=== PATIENT | female | born 1985 | race American Indian/Alaskan Native ===

== ENCOUNTER 2017-04-16 23:44 | Emergency (ER) | payer BC ==
[2017-04-17 01:02] LABS: Basophils % (Auto) 0.4 % (0.0-1.8); Eosinophils % (Auto) 1.3 % (0.0-4.3); Hematocrit 36.8 % (30.3-42.9); Mean Corpuscular HGB Conc 33 % (30-34); Mean Corpuscular Hemoglobin 29 pg (28-32); Mean Corpuscular Volume 87 fl (79-97); Platelet Count 166 K/mm3 (140-440); Red Blood Count 4.22 M/mm3 (3.65-5.03); Red Cell Distribution Width 13.8 % (13.2-15.2); White Blood Count 8.7 K/mm3 (4.5-11.0)
[2017-04-17 01:25] LABS: Alanine Aminotransferase 8 units/L (7-56); Albumin 4.4 g/dL (3.9-5); Albumin/Globulin Ratio 1.4 %; Alkaline Phosphatase 37 units/L (35-129); Anion Gap 15 mmol/L; Blood Urea Nitrogen 6 mg/dL (7-17); Calcium 9.3 mg/dL (8.4-10.2); Carbon Dioxide 25 mmol/L (22-30); Chloride 101.5 mmol/L (98-107); Glucose 94 mg/dL (65-100); Lipase 20 units/L (13-60); Potassium 3.9 mmol/L (3.6-5.0); Sodium 138 mmol/L (137-145); Total Protein 7.5 g/dL (6.3-8.2)
[2017-04-17 02:31] LABS: Bacteria,Urine 4+ /HPF (Negative); Bilirubin,Urine NEG (Negative); Blood,Urine SM (Negative); Ketones,Urine NEG (Negative); Leukocyte Esterase,Urine SM (Negative); Mucus,Urine 2+ /HPF; Nitrite,Urine POS (Negative); Protein,Urine <15 mg/dL mg/dL (Negative); Urobilinogen,Urine < 2.0 mg/dL (<2.0)
--- NOTE | 2017-04-17 03:02 | Emergency Department Report ---
HPI - General Chief Complaint: Abdominal Pain Time Seen by Provider: 04/17/17 02:56 - HPI HPI: 31-year-old Slovak Slovak female coming in with pelvic pain starting on this morning patient had a history recent amenorrhea. She states that her pain is accompanied by nausea, vomiting and urinary symptoms but no diarrhea. Patient has not taking any medication at home for her symptoms. She denies any exacerbating factors. She denies any alleviating factors. She denies any recent travel, or unusual foods. She denies any sick contacts. MD Complaint: abdominal pain -: Gradual Location: Pelvic Radiation: none Migration to: no migration Severity scale (0 -10): 10 Quality: sharp Improves With: nothing Associated Symptoms: nausea, vomiting, chills ED Past Medical Hx - Past Medical History Previous Medical History?: No - Surgical History Past Surgical History?: No - Social History Smoking Status: Current Every Day Smoker Substance Use Type: Alcohol - Medications Home Medications: Home Medications Medication Instructions Recorded Confirmed Last Taken Type Nitrofurantoin [place]/M-Cryst 100 mg PO Q12HR #14 capsule 04/17/17 Unknown Rx [Macrobid CAP] ED Review of Systems ROS: Stated complaint: ABOMINAL PAIN Other details as noted in HPI Comment: All other systems reviewed and negative Endocrine: no symptoms reported Gastrointestinal: as per HPI Genitourinary: as per HPI Musculoskeletal: denies: back pain, joint swelling, arthralgia Skin: denies: rash, lesions Physical Exam - Physical Exam Vital Signs: Vital Signs 04/17/17 00:18 Temperature 98.9 F Pulse Rate 83 Respiratory 17 Rate Blood Pressure 138/75 O2 Sat by Pulse 99 Oximetry Physical Exam: Physical Exam: - General Limitations: No Limitations General appearance: alert, in no apparent distress. - Head Head exam: Present: atraumatic, normocephalic - Eye Eye exam: Present: normal appearance - ENT ENT exam: Present: mucous membranes moist - Neck Neck exam: Present: normal inspection - Respiratory Respiratory exam: Present: normal lung sounds bilaterally. Absent: respiratory distress - Cardiovascular Cardiovascular Exam: Present: normal rhythm, normal rate. Absent: systolic murmur, diastolic murmur, rubs, gallop - GI/Abdominal GI/Abdominal exam: Present: soft, normal bowel sounds - Extremities Exam Extremities exam: Present: normal inspection - Back Exam Back exam: Present: normal inspection - Neurological Exam Neurological exam: Present: alert, oriented X3 - Psychiatric Psychiatric exam: normal affect and mood - Skin Skin exam: Present: warm, dry, intact, normal color. Absent: rash ED Course Vital Signs 04/17/17 00:18 Temperature 98.9 F Pulse Rate 83 Respiratory 17 Rate Blood Pressure 138/75 O2 Sat by Pulse 99 Oximetry ED Medical Decision Making - Lab Data Result diagrams: 04/17/17 00:50 04/17/17 00:50 Critical care attestation.: If time is entered above; I have spent that time in minutes in the direct care of this critically ill patient, excluding procedure time. ED Disposition Clinical Impression: Threatened , UTI (urinary tract infection) Disposition: - TO HOME OR SELFCARE Is pt being admited?: No Does the pt Need Aspirin: No Condition: Stable Instructions: Abdominal Pain (ED) Prescriptions: Nitrofurantoin [place]/M-Cryst [Macrobid CAP] 100 mg PO Q12HR #14 capsule Referrals: PRIMARY CAREMD [Primary Care Provider] - 3-5 Days ILEANA ANGEL MD [Staff Physician] - 3-5 Days
--- NOTE | 2017-04-17 04:17 | Ultrasound Report ---
FINAL REPORT PROCEDURE: Obstetrical ultrasound, transabdominal and transvaginal TECHNIQUE: Real-time transabdominal and transvaginal sonography of the uterus, placenta, amniotic fluid, adnexa, and fetus was performed with image documentation. Measurements were obtained to determine age/size. M-mode Doppler was used to document heartbeat. CPT 46896 and 85659 HISTORY: pelvic pain COMPARISON: No prior studies are available for comparison. FINDINGS: There is a gestational sac identified within the uterus. The gestational sac size of 21 millimeters corresponds to an approximate gestational age of 7 weeks. No definitive pole is identified on this study. There is some debris in 1 portion of the gestational sac. This may represent a yolk sac. The right ovary size is normal. There is a complex cystic region on the right ovary this measures 19 millimeters. The left ovary size and echogenicity is normal. The findings are most consistent with a failed intrauterine . With the gestational sac size of 21 millimeters a pole should be identified on the evaluation. IMPRESSION: There is a gestational sac within the uterus. Approximate gestational age of 7 weeks. No pole is identified on this study. The findings are most consistent with failed intrauterine . There is a complex cyst on the right ovary as discussed.
--- NOTE | 2017-04-17 04:18 | Ultrasound Report ---
FINAL REPORT PROCEDURE: Obstetrical ultrasound, transabdominal and transvaginal TECHNIQUE: Real-time transabdominal and transvaginal sonography of the uterus, placenta, amniotic fluid, adnexa, and fetus was performed with image documentation. Measurements were obtained to determine age/size. M-mode Doppler was used to document heartbeat. CPT 25926 and 25984 HISTORY: pelvic pain COMPARISON: No prior studies are available for comparison. FINDINGS: There is a gestational sac identified within the uterus. The gestational sac size of 21 millimeters corresponds to an approximate gestational age of 7 weeks. No definitive pole is identified on this study. There is some debris in 1 portion of the gestational sac. This may represent a yolk sac. The right ovary size is normal. There is a complex cystic region on the right ovary this measures 19 millimeters. The left ovary size and echogenicity is normal. The findings are most consistent with a failed intrauterine . With the gestational sac size of 21 millimeters a pole should be identified on the evaluation. IMPRESSION: There is a gestational sac within the uterus. Approximate gestational age of 7 weeks. No pole is identified on this study. The findings are most consistent with failed intrauterine . There is a complex cyst on the right ovary as discussed.
[2017-04-17 05:37] VITALS: BP 132/72
== END 2017-04-17 05:38 | disposition home or self-care (01) ==
LOC: ED 23:44
DX: O20.0 Threatened abortion (principal); O23.41 Unspecified infection of urinary tract in pregnancy, first trimester; Z3A.01 Less than 8 weeks gestation of pregnancy; F17.200 Nicotine dependence, unspecified, uncomplicated
CPT/HCPCS: 36415; 76801; 76817; 80053; 81001; 81025; 83690; 84702; 85025

== ENCOUNTER 2017-11-21 10:57 | Emergency (ER) | payer BC ==
--- NOTE | 2017-11-21 16:57 | Emergency Department Report ---
ED Chest Pain HPI - General Chief Complaint: Chest Pain Stated Complaint: CP Time Seen by Provider: 11/21/17 14:39 Source: patient Mode of arrival: Ambulatory Limitations: No Limitations - History of Present Illness Initial Comments: Patient is a 32-year-old female who is presenting with chest pain since yesterday. Patient states that when she takes a deep breath it makes her cough and she has some pleuritic chest pain. Patient denies any shortness of breath. Cough is nonproductive. Patient states the pain is anterior chest. Patient 4 months at this time. Patient denies any fevers chills nausea vomiting. Patient states pain is sharp in nature and 6 out of 10 in severity. - Related Data Previous Rx's Medication Instructions Recorded Last Taken Type Nitrofurantoin [place]/M-Cryst 100 mg PO Q12HR #14 capsule 04/17/17 Unknown Rx [Macrobid CAP] ALBUTEROL Inhaler [ProAir HFA 2 puff IH QID PRN #1 inhalation 11/21/17 Unknown Rx Inhaler] Allergies Allergy/AdvReac Type Severity Reaction Status Date / Time No Known Allergies Allergy Verified 11/21/17 11:11 Heart Score - HEART Score History: Slightly suspicious EKG: Normal Age: < 45 Risk factors: No known risk factors Troponin: < normal limit HEART Score: 0 ED Review of Systems ROS: Stated complaint: CP Other details as noted in HPI Comment: All other systems reviewed and negative ED Past Medical Hx - Past Medical History Previous Medical History?: No - Surgical History Past Surgical History?: No - Social History Smoking Status: Never Smoker Substance Use Type: None - Medications Home Medications: Home Medications Medication Instructions Recorded Confirmed Last Taken Type Nitrofurantoin [place]/M-Cryst 100 mg PO Q12HR #14 capsule 04/17/17 Unknown Rx [Macrobid CAP] ALBUTEROL Inhaler [ProAir HFA 2 puff IH QID PRN #1 inhalation 11/21/17 Unknown Rx Inhaler] ED Physical Exam - General Limitations: No Limitations General appearance: alert, in no apparent distress - Head Head exam: Present: atraumatic, normocephalic - Eye Eye exam: Present: normal appearance - ENT ENT exam: Present: mucous membranes moist - Neck Neck exam: Present: normal inspection - Respiratory Respiratory exam: Present: normal lung sounds bilaterally. Absent: respiratory distress, wheezes, rales, rhonchi - Cardiovascular Cardiovascular Exam: Present: regular rate, normal rhythm. Absent: systolic murmur, diastolic murmur, rubs, gallop - GI/Abdominal GI/Abdominal exam: Present: soft, normal bowel sounds. Absent: distended, tenderness, guarding, rebound - Extremities Exam Extremities exam: Present: normal inspection - Back Exam Back exam: Present: normal inspection - Neurological Exam Neurological exam: Present: alert, oriented X3 - Psychiatric Psychiatric exam: Present: normal affect, normal mood - Skin Skin exam: Present: warm, dry, intact, normal color. Absent: rash ED Course Vital Signs 11/21/17 11:11 Temperature 98.7 F Pulse Rate 85 Respiratory 16 Rate Blood Pressure 125/82 O2 Sat by Pulse 100 Oximetry ED Medical Decision Making - Lab Data Lab Results 11/21/17 Range/Units 15:13 D-Dimer 223.35 (0-234) ng/mlDDU - EKG Data -: EKG Interpreted by Ar - EKG Data Interpretation: other (EKG shows a sinus rhythm at 82 normal axis normal and was no ST segment elevation or depression. Interpretation is 1110) - Medical Decision Making Patient's d-dimer is negative patient ruled out for PE at this time. Patient will be discharged home and take Tylenol for pain. Critical care attestation.: If time is entered above; I have spent that time in minutes in the direct care of this critically ill patient, excluding procedure time. ED Disposition Clinical Impression: Pleurisy Disposition: DC-01 TO HOME OR SELFCARE Is pt being admited?: No Does the pt Need Aspirin: No Condition: Stable Instructions: Pleurisy (ED) Prescriptions: ALBUTEROL Inhaler [ProAir HFA Inhaler] 2 puff IH QID PRN #1 inhalation PRN Reason: Shortness Of Breath Referrals: PRIMARY CARE,MD [Primary Care Provider] - 3-5 Days
[2017-11-21 17:53] VITALS: BP 138/69
== END 2017-11-21 17:52 | disposition home or self-care (01) ==
LOC: ED 10:57
DX: R09.1 Pleurisy (principal)
CPT/HCPCS: 36415; 85379; 93005; 93010; 99282

== ENCOUNTER 2019-08-10 04:58 | Emergency (ER) | payer BC ==
[2019-08-10] MEDS ORDERED: ACETAMINOPHEN 325 MG TAB PO ONE (06:04)
[2019-08-10] MEDS ORDERED: ACETAMINOPHEN 325 MG TAB ONE (06:07)
[2019-08-10 06:25] LABS: Basophils % (Auto) 0.3 % (0.0-1.8); Eosinophils # (Auto) 0.1 K/mm3 (0.0-0.4); Eosinophils % (Auto) 1.3 % (0.0-4.3); Hematocrit 35.6 % (30.3-42.9); Hemoglobin 11.6 gm/dl (10.1-14.3); Lymphocytes # (Auto) 2.2 K/mm3 (1.2-5.4); Lymphocytes % (Auto) 23.1 % (13.4-35.0); Mean Corpuscular HGB Conc 33 % (30-34); Mean Corpuscular Volume 88 fl (79-97); Monocytes # (Auto) 0.6 K/mm3 (0.0-0.8); Monocytes % (Auto) 6.1 % (0.0-7.3); Platelet Count 178 K/mm3 (140-440); Red Blood Count 4.07 M/mm3 (3.65-5.03); Red Cell Distribution Width 13.3 % (13.2-15.2)
[2019-08-10 07:17] LABS: Bilirubin,Urine NEG (Negative); Blood,Urine SM (Negative); Color,Urine Yellow (Yellow); Mucus,Urine 3+ /HPF
--- NOTE | 2019-08-10 08:32 | Ultrasound Report ---
Obstetrical ultrasound. 08/10/2019. HISTORY: Abdominal pain. FINDINGS: A viable intrauterine gestation is in the breech presentation. The placenta is located on t he right laterally. Amniotic fluid is subjectively normal. Cervical length is 5 cm. Renal margins are normal and 144 bpm. Estimated age is 18 weeks 3 days. Estimated weight is 243 g. survey demonstrates no gross anomaly. IMPRESSION: Viable intrauterine dated 18 weeks 3 days. No anomaly identified. Signer Name: Jose Luis Chambers MD Signed: 08/10/2019 8:27 AM Workstation Name: [id number]
--- NOTE | 2019-08-10 09:24 | Emergency Department Report ---
HPI - General Chief Complaint: Abdominal Pain Time Seen by Provider: 08/10/19 08:45 - HPI HPI: 34-year-old female presents to the emergency department with 2 complaints. First, the patient complains of some lower abdominal and/or pelvic sharp intermittent pains for the past few days. The patient is and thinks she is about 14 weeks along. She denies any vaginal bleeding, dysuria, fever, vomiting. With this she is and follows at [facility] for [facility]. Her second complaint is some right knee pain, worse towards the medial portion of the knee, that started about 3 days ago. She denies any fall, trauma or obvious inciting injury/event. She is able to walk and bear weight but has some pain with doing so. She has not taken anything for her symptoms prior to arrival today. Otherwise she denies any past medical history. No swelling of the legs. No skin color change or rash. ED Past Medical Hx - Past Medical History Previous Medical History?: No - Surgical History Past Surgical History?: No - Social History Smoking Status: Never Smoker Substance Use Type: None - Medications Home Medications: Home Medications Medication Instructions Recorded Confirmed Last Taken Type Butalb/Acetamin/Caff 50-325-40 1 tab PO Q6HR PRN #20 tab 05/28/18 Unknown Rx [Fioricet] Ibuprofen [Motrin] 800 mg PO Q8HR PRN 05/28/18 05/28/18 Unknown History labetaloL [Labetalol 100mg TAB] 100 mg PO BID #20 tablet 05/28/18 Unknown Rx ED Review of Systems ROS: Stated complaint: RIGHT KNEE PAIN, ABD PAIN Other details as noted in HPI Comment: All other systems reviewed and negative Constitutional: denies: chills, fever Respiratory: denies: shortness of breath Cardiovascular: denies: chest pain Gastrointestinal: abdominal pain. denies: vomiting Genitourinary: denies: dysuria, abnormal menses Musculoskeletal: arthralgia. denies: joint swelling Skin: denies: rash, lesions Neurological: denies: numbness, paresthesias Physical Exam - Physical Exam Vital Signs: Vital Signs 08/10/19 05:14 Temperature 98.5 F Pulse Rate 96 H Respiratory 18 Rate Blood Pressure 126/78 O2 Sat by Pulse 98 Oximetry Physical Exam: GENERAL: The patient is well-developed well-nourished. HEENT: Normocephalic. Atraumatic. Patient has moist mucous membranes. EYES: Extraocular motions are intact. NECK: Supple. Trachea is midline CHEST/LUNGS: Clear to auscultation. There is no respiratory distress noted. HEART/CARDIOVASCULAR: Regular. There is no tachycardia. ABDOMEN: Abdomen is soft, nontender. Patient has normal bowel sounds. There is no abdominal distention. SKIN: Skin is warm and dry. NEURO: The patient is awake, alert, and oriented. The patient is cooperative. Normal speech. MUSCULOSKELETAL: There is some mild tenderness to the medial portion of the right knee but no obvious deformity. Negative anterior and posterior drawer test. No laxity to valgus or varus stress. ED Course Vital Signs 08/10/19 05:14 Temperature 98.5 F Pulse Rate 96 H Respiratory 18 Rate Blood Pressure 126/78 O2 Sat by Pulse 98 Oximetry ED Medical Decision Making - Lab Data Result diagrams: 08/10/19 06:06 - Radiology Data Radiology results: report reviewed ultrasound shows a live intrauterine at 18 weeks and 3 days. - Medical Decision Making This patient presents the emergency department with some lower abdominal or pelvic cramping while . The patient thought she was 14 weeks but her ultrasound came back showing a live intrauterine at 18 weeks and 3 days without any other significant abnormalities. There is no vaginal b leeding. The patient also complains of some atraumatic medial right knee pain. There is no joint swelling, erythema or warmth. Negative drawer test and there is no laxity to valgus or varus stress. Given this, and the patient's status, I did not feel that x-ray of the knee was necessary at this time. She is ambulatory. She was given an Sae wrap for some added support. Patient has been discharged appear safe for discharge home at this time. She is given a referral for an orthopedist and instructed to follow-up with her [facility]. She will return to the ER with any worsening of her symptoms or any acute distress. - Differential Diagnosis , threatened miscarriage, spontaneous miscarriage, osteoarthritis, Critical Care Time: No Critical care attestation.: If time is entered above; I have spent that time in minutes in the direct care of this critically ill patient, excluding procedure time. ED Disposition Clinical Impression: Qualifiers: Weeks of gestation: 18 weeks Qualified Code(s): Z3A.18 - 18 weeks gestation of Abdominal pain Qualifiers: Abdominal location: unspecified location Qualified Code(s): R10.9 - Unspecified abdominal pain Right knee pain Qualifiers: Chronicity: unspecified Qualified Code(s): M25.561 - Pain in right knee Disposition: TO HOME OR SELFCARE Is pt being admited?: No Condition: Stable Instructions: (ED), Abdominal Pain (ED), Knee Pain (ED) Additional Instructions: Please follow-up with your [facility] regarding your abdominal pain while . However the ultrasound today showed a live intrauterine at 18 weeks. I am giving you a referral for a local orthopedist, Dr. Mcguire, to follow up regarding your right knee pain. Return to the emergency Department with any worsening of your symptoms or with any acute distress. You can take Tylenol every 4-6 hours, using weight-based dosing on the back of the bottle, as needed for any discomfort. Referrals: ILEANA ANGEL MD [Staff Physician] - 2-3 Days JAYLYN MCGUIRE MD [Staff Physician] - 2-3 Days PRIMARY CARE, [Primary Care Provider] - 2-3 Days Time of Disposition: 09:24
[2019-08-10 09:36] VITALS: BP 122/78
== END 2019-08-10 09:35 | disposition home or self-care (01) ==
LOC: ED 04:58
DX: O26.892 Other specified pregnancy related conditions, second trimester (principal); R10.30 Lower abdominal pain, unspecified; M25.561 Pain in right knee; Z79.899 Other long term (current) drug therapy; Z3A.18 18 weeks gestation of pregnancy
CPT/HCPCS: 36415; 76805; 81001; 84702; 85025; 99284

== ENCOUNTER 2021-02-24 07:09 | Emergency (ER) | payer BC, MEDICAID ==
[2021-02-24] MEDS ORDERED: ONDANSETRON 4 MG/2 ML INJ IV ONE (08:06)
[2021-02-24] MEDS ORDERED: SODIUM CHLORIDE 0.9% 1000 ML 1,000 ML IV ONE (08:06)
[2021-02-24 08:31] LABS: Bacteria,Urine 1+ /HPF (Negative); Bilirubin,Urine NEG (Negative); Blood,Urine MOD (Negative); Color,Urine Yellow (Yellow); Mucus,Urine 3+ /HPF; Protein,Urine <15 mg/dL mg/dL (Negative)
[2021-02-24 08:46] LABS: Hematocrit 32.8 % (30.3-42.9); Hemoglobin 10.9 gm/dl (10.1-14.3); Mean Corpuscular HGB Conc 33 % (30-34); Mean Corpuscular Volume 87 fl (79-97); Platelet Count 150 K/mm3 (140-440); Red Blood Count 3.77 M/mm3 (3.65-5.03); Red Cell Distribution Width 13.7 % (13.2-15.2)
--- NOTE | 2021-02-24 08:48 | Emergency Department Report ---
ED General Adult HPI - General Chief complaint: Headache Stated complaint: 16 WEEKS , MIGRAINE PUI?: No Time Seen by Provider: 02/24/21 07:26 Source: patient Mode of arrival: Ambulatory Limitations: No Limitations - History of Present Illness Initial comments: 35 YO COMES TO ER CO HEADACHE. I ENTERED THE ROOM SHE WAS ARGUING WITH THE FATHER OF THE CHILD ON THE FACE TIME. SHE STATES "HE JUST DOES NOT GET IT." I ASKED HER TO HANG UP THE PHONE. IT SEEMS SHE IS TRYING TO IMPRESS UPON HIM THAT THE NEEDS TO BE SUPPORTIVE OF THE BECAUSE IT CAN OTHER BLACKMON MAKE HER BP GO UP AND COMPROMISE THE CHILD. WHEN SHE HUNG UP THE PHONE SHE ADDED THEY WERE WORKING ON THEIR RELATIONSHIP AND THE "HAPPENED" AND SINCE THEN THEY HAVE HAD PROBLEMS. ONE OF HER OTHER CHILDREN ARE TO THIS MAN PT SAW HER OBGYN LAST WEEK AND HAS APPNT 03/18. SHE IS A PT AT [facility]. HER BP WAS ELEVATED LAST WEEK IN THE OFFICE TO 166/90 BUT SHE STATES THEY WERE NOT CONCERNED THE PT ADDS SHE HAS HAD PREECLAMPSIA WITH HER OTHER PREGNANCYS AND A HX OF MIGRAINES LMP 09/26/20 EDC 07/31/21 HOME MEDS ONLY NO VAG BLEED OR DISCHARGE NO ABD PAIN OR BACK PAIN NO DYSURIA NO CP OR SOB NO PHOTOPHOBIA NO N/V PT DROVE SELF TO ER; SHE HAS NO FOCAL DEFICIT. -: Gradual Location: head Radiation: non-radiation Severity scale (0 -10): 8 Quality: aching Consistency: intermittent Improves with: none Worsens with: none Associated Symptoms: denies other symptoms Treatments Prior to Arrival: none - Related Data Previous Rx's Medication Instructions Recorded Last Taken Type cephALEXin [Keflex] 500 mg PO Q12HR #10 cap 02/24/21 Unknown Rx Allergies Allergy/AdvReac Type Severity Reaction Status Date / Time No Known Allergies Allergy Verified 02/24/21 07:11 ED Review of Systems ROS: Stated complaint: 16 WEEKS , MIGRAINE Other details as noted in HPI Comment: All other systems reviewed and negative ED Past Medical Hx - Past Medical History Previous Medical History?: Yes Hx Hypertension: Yes - Surgical History Past Surgical History?: Yes Additional Surgical History: c section - Family History Family history: no significant - Social History Smoking Status: Never Smoker Substance Use Type: None - Medications Home Medications: Home Medications Medication Instructions Recorded Confirmed Last Taken Type cephALEXin [Keflex] 500 mg PO Q12HR #10 cap 02/24/21 Unknown Rx ED Physical Exam - General Limitations: No Limitations General appearance: alert, in no apparent distress - Head Head exam: Present: atraumatic, normocephalic - Eye Eye exam: Present: normal appearance - ENT ENT exam: Present: mucous membranes moist - Neck Neck exam: Present: normal inspection - Respiratory Respiratory exam: Present: normal lung sounds bilaterally. Absent: respiratory distress - Cardiovascular Cardiovascular Exam: Present: regular rate, normal rhythm. Absent: systolic murmur, diastolic murmur, rubs, gallop - GI/Abdominal GI/Abdominal exam: Present: soft, normal bowel sounds - Extremities Exam Extremities exam: Present: normal inspection - Back Exam Back exam: Present: normal inspection - Neurological Exam Neurological exam: Present: alert, oriented X3 - Psychiatric Psychiatric exam: Present: normal affect, normal mood - Skin Skin exam: Present: warm, dry, intact, normal color. Absent: rash ED Course Vital Signs 02/24/21 02/24/21 07:17 10:46 Temperature 98.6 F Pulse Rate 84 84 Respiratory 20 19 Rate Blood Pressure 122/66 127/71 [Right] O2 Sat by Pulse 95 99 Oximetry ED Medical Decision Making - Lab Data Result diagrams: 02/24/21 08:24 02/24/21 08:24 - Medical Decision Making Vital Signs 02/24/21 07:17 Temperature 98.6 F Pulse Rate 84 Respiratory 20 Rate Blood Pressure 122/66 [Right] O2 Sat by Pulse 95 Oximetry Labs 02/24/21 02/24/21 02/24/21 08:20 08:24 08:24 WBC 6.3 RBC 3.77 Hgb 10.9 Hct 32.8 MCV 87 MCH 29 MCHC 33 RDW 13.7 Plt Count 150 Sodium 135 L Potassium 3.7 Chloride 102.9 Carbon Dioxide 22 Anion Gap 14 BUN 6 L Creatinine 0.4 L Estimated GFR > 60 BUN/Creatinine Ratio 15 Glucose 90 Calcium 8.6 Total Bilirubin 0.20 AST 9 ALT < 5 L Alkaline Phosphatase 31 L Total Protein 6.1 L Albumin 3.5 L Albumin/Globulin Ratio 1.3 HCG, Quant Urine Color Yellow Urine Turbidity Slightly-cloudy Urine pH 6.0 Ur Specific [place] 1.025 Urine Protein <15 mg/dl Urine Glucose (UA) Neg Urine Ketones Neg Urine Blood Mod Urine Nitrite Neg Urine Bilirubin Neg Urine Urobilinogen 2.0 Ur Leukocyte Esterase Tr Urine WBC (Auto) 1.0 Urine RBC (Auto) 7.0 U Epithel Cells (Auto) 8.0 Urine Bacteria (Auto) 1+ Urine Mucus 3+ 02/24/21 08:24 WBC RBC Hgb Hct MCV MCH MCHC RDW Plt Count Sodium Potassium Chloride Carbon Dioxide Anion Gap BUN Creatinine Estimated GFR BUN/Creatinine Ratio Glucose Calcium Total Bilirubin AST ALT Alkaline Phosphatase Total Protein Albumin Albumin/Globulin Ratio HCG, Quant 09628 H Urine Color Urine Turbidity Urine pH Ur Specific [place] Urine Protein Urine Glucose (UA) Urine Ketones Urine Blood Urine Nitrite Urine Bilirubin Urine Urobilinogen Ur Leukocyte Esterase Urine WBC (Auto) Urine RBC (Auto) U Epithel Cells (Auto) Urine Bacteria (Auto) Urine Mucus UA NOTED WILL TREAT GIVEN HER URINE CULTURE PENDING CALL HER IF SHE NEEDS AN ANBX CHANGE LABS NOTED 1LNS/TYLENOL/ROCEPHIN GIVEN IN ER ON DC EXAM SHE REPORTS FEELING BETTER. SHE HAS BEEN IN ROOM, IN THE DARK AND NON CONVERSING ON THE PHONE I HAD ASKED OF HER. DC HOME WITH OBGYN FOLLOW UP. HAS BEEN ADVISED TO MINIMIZE STRESS ASSOCIATED WITH FATHER OF CHILD. PT VERBALIZES UNDERSTANDING OF DC PLAN OF CARE - Differential Diagnosis HEADACHE/; STRESS; HX PRE-ECLAMPSIA Critical care attestation.: If time is entered above; I have spent that time in minutes in the direct care of this critically ill patient, excluding procedure time. ED Disposition Clinical Impression: , UTI (urinary tract infection), Headache Disposition: DC-01 TO HOME OR SELFCARE Is pt being admited?: No Does the pt Need Aspirin: No Condition: Stable Instructions: Urinary Tract Infection, Adult Additional Instructions: FOLLOW UP WITH OBGYN ALLIE TYLENOL FOR PAIN DRINK ALOT OF WATER EAT BALANCED DIET CONTINUE VITAMIN AVOID STRESS OF RELATIONSHIP -- THIS AFFECTS YOUR BP PT UNDERSTANDS WE WILL CALL HER IF WE NEED TO CHANGE HER ANTIBIOTICS BASED ON CULTURE DATA Prescriptions: cephALEXin [Keflex] 500 mg PO Q12HR #10 cap Referrals: JUAN OLSON MD [Primary Care Provider] - 3-5 Days CHANDNI GARCIA MD [Referring] - 3-5 Days PETRA MUÑOZ MD [Staff Physician] - 3-5 Days Time of Disposition: 10:15
[2021-02-24 09:08] LABS: Albumin 3.5 g/dL (3.9-5); Blood Urea Nitrogen 6 mg/dL (7-17); Calcium 8.6 mg/dL (8.4-10.2); Hemolysis Index 2
[2021-02-24] MEDS ORDERED: cefTRIAXone/NS 1 GM/50 ML 1 GM/50 ML BAG IV ONE (09:10)
[2021-02-24 09:51] LABS: Alanine Aminotransferase < 5 units/L (7-56); BUN/Creatinine Ratio 15
[2021-02-24] MEDS ORDERED: ACETAMINOPHEN 500 MG TAB PO ONE (10:07)
[2021-02-24 10:47] VITALS: BP 127/71
== END 2021-02-24 10:47 | disposition home or self-care (01) ==
LOC: ED 07:09
DX: O23.42 Unspecified infection of urinary tract in pregnancy, second trimester (principal); O26.891 Other specified pregnancy related conditions, first trimester; R51.9 Headache, unspecified; I10 Essential (primary) hypertension; Z3A.16 16 weeks gestation of pregnancy; Z98.890 Other specified postprocedural states; Z79.899 Other long term (current) drug therapy
CPT/HCPCS: 36415; 80053; 81001; 84702; 85027; 87086; 96361; 96365; 96375; 99283; J0696; J2405; J7030

== ENCOUNTER 2021-06-13 01:11 | Emergency (ER) | payer BC, MEDICAID ==
[2021-06-13 02:48] VITALS: BP 118/62
--- NOTE | 2021-06-13 02:50 | Emergency Department Report ---
- General Stated Complaint: RUNNY NOSE/COUGH - History of Present Illness Initial Comments: Patient is a 35-year-old -[place] female with no past medical history presents to the ED with complaint of acute onset persistent nasal and sinus congestion, persistent dry cough, frontal sinus pressure and headache for the last 1 week. Patient states that her own school going children have had similar symptoms and now the entire household is infected. Patient states that she is 32 weeks gestation at this time. Patient states that she has been taking [id number] medications with no relief. Patient denies fever, chills, sore throat, nausea and vomiting, abdominal pain, chest pain, diarrhea, dysuria, urinary frequency and urgency or change in vision and neck pain. MD Complaint: cough, rhinorrhea, nasal congestion, sinus pain -: Sudden, week(s) (1) Severity: moderate Severity scale (0 -10): 4 Quality: dull, aching Consistency: constant Improves With: nothing Worsens With: nothing Context: sick contacts Associated Symptoms: denies other symptoms, headache, rhinorrhea, nasal congestion, cough. denies: chills, myalgias, sore throat, stiff neck, chest pain, shortness of breath, abdominal pain, nausea, vomiting, diarrhea, rash, right sweats, weight loss, epistaxis, hoarseness, ear pain, other Treatments Prior to Arrival: "cold medicine" - Related Data Previous Rx's Medication Instructions Recorded Last Taken Type cephALEXin [Keflex] 500 mg PO Q12HR #10 cap 02/24/21 Unknown Rx Azithromycin [Zithromax Z-UZIEL] 250 mg PO DAILY #6 tablet 06/13/21 Unknown Rx Cetirizine HCl [Zyrtec 10mg tab] 10 mg PO DAILY #30 tablet 06/13/21 Unknown Rx Allergies Allergy/AdvReac Type Severity Reaction Status Date / Time No Known Allergies Allergy Verified 02/24/21 07:11 ED Review of Systems ROS: Stated complaint: RUNNY NOSE/COUGH Other details as noted in HPI Constitutional: denies: chills, fever Eyes: denies: eye pain, eye discharge, vision change ENT: congestion, other (Nasal and sinus congestion with frontal sinus pressure and headache). denies: ear pain, throat pain Respiratory: cough. denies: shortness of breath, wheezing Cardiovascular: denies: chest pain, palpitations Endocrine: no symptoms reported Gastrointestinal: denies: abdominal pain, nausea, vomiting, diarrhea Genitourinary: denies: urgency, dysuria, discharge Musculoskeletal: denies: back pain, joint swelling, arthralgia Skin: denies: rash, lesions Neurological: headache. denies: weakness, paresthesias Psychiatric: denies: anxiety, depression Hematological/Lymphatic: denies: easy bleeding, easy bruising ED Past Medical Hx - Past Medical History Hx Hypertension: Yes - Surgical History Additional Surgical History: c section - Social History Smoking Status: Never Smoker Substance Use Type: None - Medications Home Medications: Home Medications Medication Instructions Recorded Confirmed Last Taken Type cephALEXin [Keflex] 500 mg PO Q12HR #10 cap 02/24/21 Unknown Rx Azithromycin [Zithromax Z-UZIEL] 250 mg PO DAILY #6 tablet 06/13/21 Unknown Rx Cetirizine HCl [Zyrtec 10mg tab] 10 mg PO DAILY #30 tablet 06/13/21 Unknown Rx ED Physical Exam - General General appearance: alert, in no apparent distress - Head Head exam: Present: atraumatic, normocephalic, normal inspection - Eye Eye exam: Present: normal appearance, PERRL, EOMI Pupils: Present: normal accommodation - ENT ENT exam: Present: normal orophraynx, mucous membranes moist, TM's normal bilaterally, normal external ear exam, other (Grossly congested nasal passages; frontal sinus tenderness) - Neck Neck exam: Present: normal inspection, full ROM. Absent: tenderness - Respiratory Respiratory exam: Present: normal lung sounds bilaterally. Absent: respiratory distress, wheezes, rales, rhonchi, chest wall tenderness, accessory muscle use, decreased breath sounds, prolonged expiratory - Cardiovascular Cardiovascular Exam: Present: normal rhythm, tachycardia, normal heart sounds. Absent: systolic murmur, diastolic murmur, rubs, gallop - GI/Abdominal GI/Abdominal exam: Present: soft, normal bowel sounds. Absent: tenderness, guarding, rebound, hyperactive bowel sounds, organomegaly - Extremities Exam Extremities exam: Present: normal inspection, full ROM, normal capillary refill - Back Exam Back exam: Present: normal inspection, full ROM. Absent: tenderness, CVA tenderness (R), CVA tenderness (L), muscle spasm, paraspinal tenderness, vertebral tenderness - Neurological Exam Neurological exam: Present: alert, oriented X3, CN II-XII intact, normal gait, reflexes normal - Psychiatric Psychiatric exam: Present: normal affect, normal mood - Skin Skin exam: Present: warm, dry, intact, normal color. Absent: rash ED Medical Decision Making - Medical Decision Making This is a 35-year-old -[place] female with no past medical history presents to the ED with complaint of acute onset persistent nasal and sinus congestion, persistent dry cough, frontal sinus pressure and headache for the last 1 week. Patient states that her own school going children have had similar symptoms and now the entire household is infected. Patient states that she is 32 weeks gestation at this time. Patient states that she has been taking [id number] medications with no relief. In the ED, patient is alert and oriented x3 and is not in any distress. Patient will discharge home on medications based on the physical exam findings and history. Patient was advised to follow-up with her [employer] physician or primary care physician in 5 to 7 days for reevaluation or return to the ED immediately if symptoms get worse. - Differential Diagnosis Bronchitis; sinusitis; URI; rhinitis Critical care attestation.: If time is entered above; I have spent that time in minutes in the direct care of this critically ill patient, excluding procedure time. ED Disposition Clinical Impression: Acute upper respiratory infection Acute bronchitis Qualifiers: Bronchitis organism: other organism Qualified Code(s): J20.8 - Acute bronchitis due to other specified organisms Acute frontal sinusitis, unspecified Qualifiers: Recurrence: non-recurrent Qualified Code(s): J01.10 - Acute frontal sinusitis, unspecified Disposition: 01 HOME / SELF CARE / HOMELESS Is pt being admited?: No Does the pt Need Aspirin: No Condition: Stable Instructions: Acute Bronchitis (ED), Sinusitis, Adult, [id number], Upper Respiratory Infection, Adult, [id number], Cough, Adult, [id number], Acute Bronchitis, Adult, [id number] Additional Instructions: Take medication with food, drink plenty of fluids and follow-up with your primary care physician in 5 to 7 days for reevaluation. Return to the ED immediately if symptoms get worse Prescriptions: Azithromycin [Zithromax Z-UZIEL] 250 mg PO DAILY #6 tablet Cetirizine HCl [Zyrtec 10mg tab] 10 mg PO DAILY #30 tablet Referrals: [facility] [place] [Provider Group] - 3-5 Days Time of Disposition: 02:51 Print Language: UZBEK
== END 2021-06-13 04:47 | disposition home or self-care (01) ==
LOC: ED 01:11
DX: O26.893 Other specified pregnancy related conditions, third trimester (principal); J06.9 Acute upper respiratory infection, unspecified; J20.8 Acute bronchitis due to other specified organisms; J01.10 Acute frontal sinusitis, unspecified; I10 Essential (primary) hypertension; Z3A.32 32 weeks gestation of pregnancy
CPT/HCPCS: 99282